=== PATIENT | female | born 1955 | race Caucasian/White ===

== ENCOUNTER → 2025-06-07 08:50 | Outpatient (CLI) | payer MEDICARE, SELFPAY ==
--- OUTSIDE RECORDS SUMMARY | 2025-01-18 05:15 | XMS_ITS ---
Author Organization [facility] [place] Address [address] [facility] [address] [facility] [address] [place] [id number] Care Team Providers Care Shank Skinner Name Role Phone Willam Hinkle Unavailable [phone] Magdalena Kim Unavailable [phone] Allergies Allergen (clinical drug ingredient) Drug/Non Drug Allergy documented on EMR Reaction Allergy Type Onset Date Status erythromycin Erythromycin Unknown Drug Allergy A ctive Bee Sting Unknown Allergy Active Penicillin Unknown Drug Allergy Active Results Component Value Reference Range Notes P-Lyme Disease (B. burgodorf dina), IgG/IgM, OVIDIO, Serum Reviewed date:01/22/2025 01:53:28 PM Interpretation: Normal Performing Lab: Notes/Report: Test performed by [facility] [address] [place], [place] [address] [place] [address] [place] [id number] Zoran Serrato MD, Sand [place] CLIA: [id number] B burgdorferi (Lyme Disease) IgG Negative Negative B burgdorferi (Lyme Disease) IgM Negative Negative P-Cytomegalovirus (CMV) Anti bodies, IgG/IgM Reviewed date:01/22/2025 01:53:28 PM Interpretation: Normal Performing Lab: Notes/Report: Test performed by [facility] [address] [place], [place] [address] [place] [address] Zoran Serrato MD, [place] CLIA: [id number] Cytomegalovirus (CMV) Antibody, IgG Non-Reactive Non-Reactive This test is performed by the [employer] Cytomegalovirus IgG assay. Results from assays of other manufacturers cannot be used interchangeably. Non-reactive CMV IgG-specific antibodies not detected. Borderline Recommend collection of a second sample, within 2 weeks, for repeat testing. Reactive CMV IgG-specific antibodies detected. Cytomegalovirus (CMV) Antibodies, IgM Non-Reactive Non-Reactive This test is performed by the [employer] Cytomegalovirus IgM assay. Results from assays of other manufacturers cannot be used interchangeably. Non-Reactive CMV IgM-specific antibodies not detected. Borderline Recommend collection of a second sample, within 2 weeks, for repeat testing. Reactive CMV IgM-specific antibodies detected. P-Candida Vance Virus (EBV) V CA Antibodies IgG IgM Reviewed date:01/22/2025 01:53:28 PM Interpretation:EBV IgG >8.0 Performing Lab: Notes/Report: Test performed by [facility] [address] [place] [address] , [place] [address] Zoran Serrato MD, [place] CLIA: [id number] Candida Vance Virus (EBV) VCA Antibodies IgG >8.0 <0.9 AI Candida Vance Virus (EBV) VCA Antibodies IgM <0.2 <0.9 AI P-T4 Free (thyroxine) Reviewed date:01/22/2025 01:53:28 PM Interpretation: Normal Performing Lab: Notes/Report: Test performed by [facility] [address] [place] [address] , [address], [place] [address] Zoran Serrato MD, [place] S[place] CLIA: [id number] Thyroxine Free (free T4) 1.14 0.86-1.76 ng/dL P-Lipid Panel Reviewed date:01/22/2025 01:53:28 PM Interpretation: Normal Performing Lab: Notes/Report: Test performed by [facility] [address] [place] [address] , [place] [address] Zoran Serrato MD, [place] CLIA: [id number] Cholesterol 148 <200 mg/dL Triglycerides 81 <150 mg/dL HDL Cholesterol 47 >39 mg/dL Cholesterol / HDL Ratio 3.15 0.00-4.44 Ratio Non-HDL Cholesterol 101 <130 mg/dL LDL Cholesterol (Calculation) 85 <130 mg/dL LDL Cholesterol Levels* Less than 100 mg/dL Optimal 100 to 129 mg/dL Near Optimal/ Above Optimal 130 to 159 mg/dL Borderline High 160 to 189 mg/dL High 190 mg/dL and above Very High * Categories as recommended by the 2004 ATPIII guidelines LDL/HDL Ratio 1.8 <3.3 Ratio LDL Cholesterol Patient History Test Date: 01/18/2025 LDL Results: 85 Units: mg/dL % Change: - P-T3 Uptake Reviewed date:01/22/2025 01:53:28 PM Interpretation: Normal Performing Lab: Notes/Report: Test performed by [facility] [address] [place], [place] [address] [place] [address] Zoran Serrato MD, [place] CLIA: [id number] T3 Uptake 1.01 0.80-1.30 TBI Free T4 (FT4), which more accurately reflects how the thyroid gland is functioning, especially in hypothyroidism, (https://www.thyroid.org/th riltl-djbtysbw-kpecq/), is the preferred alternative, compared to T3 uptake and free thyroxine index tests. P-Thyroid Antibody Panel (TA BS) Reviewed date:01/22/2025 01:53:29 PM Interpretation:TA 15.5, TPA 10 Performing Lab: Notes/Report: Test performed by [facility] [address] [place], [place] [address] [place] [address] Zoran Serrato MD, Sand S[place] CLIA: [id number] Thyroid Peroxidase Antibody 10 <9-34 IU/mL An elevated Thyroid Peroxidase Antibody should not be used alone to make the diagnosis of autoimmune thyroid disease. A result of <34 IU/mL does not definitively rule out the possibility of autoimmune thyroid disease. Thyroglobulin Antibody 15.5 <10-115.0 IU/mL The test is performed by the [employer] ECLIA methodology. Values obtained with different assay methods or kits cannot be directly compared. P-Vitamin D 25-Hydroxy Reviewed date:01/22/2025 01:53:29 PM Interpretation: Normal Performing Lab: Notes/Report: Test performed by [facility] [address] [place] [address] , [address], [place] [address] Zoran Serrato MD, [place] CLIA: [id number] Vitamin D 25-Hydroxy 76.5 30.0-100.0 ng/mL Interpretation of Vitamin D 25 OH: < 20 ng/mL - Deficiency 20 - 29 ng/mL - Insufficiency 30 - 100 ng/mL - Sufficiency > 100 ng/mL - Super-therapeutic- toxicity may occur above this level. Clinical correlation required. REASON FOR VISIT lab work; not feeling any better Medications Medication SIG (Take, Route, Frequency, Duration) Notes Start Date End Date Status Meloxicam 7.5 MG 1 tablet Orally Once a day; Duration: 30 day(s) 01/18/2025 Active cycloSPORINE 0.05 % 1 drop into affected eye Ophthalmic Twice a day Active Vitamin D3 1.25 MG (16856 UT) 1 capsule Orally Once weekly 12/08/2024 Active Problems Problem Type SNOMED Code ICD Code Onset Dates Problem Status W/U Status Risk Notes Problem Chronic fatigue syndrome (38212556) Chronic fatigue (R53.82) Active confirmed Problem Polyarthritis (223267310) Polyarthritis (M13.0) Active confirmed Problem Vitamin D deficiency (73009612) Vitamin D deficiency (E55.9) Active confirmed Vital Signs Blood pressure systolic 122 mm Hg 01/19/20 25 Blood pressure diastolic 70 mm Hg 025 Heart Rate 93 /min 01/18/2025 Height 62 in 01/18/2025 Weight 154 lbs 01/18/2025 BMI 28.16 kg/m2 01/18/2025 Encounters Encounter Location Date Provider Diagnosis [facility] [address] [place], [place] [id number] 01/18/2025 Magdalena Kim Chronic fatigue R53. 82 ; Myalgia M79.10 ; Polyarthritis M13.0 ; Hair loss L65.9 ; Screening, lipid Z13.220 and Vitamin D deficiency E55.9 Assessments Encounter Date Diagnosis (ICD Code) Assessment Notes Treatment Notes Treatment Clinical Notes Section Notes 01/18/2025 Chronic fatigue (ICD-10 - R53.82) 01/18/2025 Myalgia (ICD-10 - M79.10) 01/18/2025 Polyarthritis (ICD-10 - M13.0) 01/18/2025 Hair loss (ICD-10 - L65.9) 01/18/2025 Screening, lipid (ICD-10 - Z13.220) 01/18/2025 Vitamin D deficiency (ICD-10 - E55.9) Plan Of Treatment Medication Medication Name Sig Start Date Stop Date Notes Meloxicam 7.5 MG 1 tablet Orally Once a day; Duration: 30 day(s) 01/18/2025 Next Appt Details Follow Up: via phone to repo rt test results, Reason: Progress Notes * BI YOUNGADOB:1955 (70 yo F)Acc No.[id number]:01/18/2025 Progress Notes Patient: AUGUSTIN GODOY Provider: PETER Jaramillo :1955 A ge:69 Y S ex:Female Date:01/18/2025 Address:[address] [place] [address] Subjective: * Chief Complaints: * 1 . 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 * HPI: E ndocrinology: 69 year old female presents with c/o Fatigue P t complains of ongoing fatigue. Pt states fatigue has worsened and she has a hard time staying awake. Pt states that she is cold all the time as well. Pt states she would like to have blood drawn today to check thyroid and lyme disease a nd anything else that may cause fatigue that has not been checked. She did have covid in October and states she never seemed to bounce back after that.. R heumatology: c/o joint pain m ultiple joints. * ROS: D ERMATOLOGY: no R ludivina. n o H isaac. G ASTROENTEROLOGY: no N ausea. n o V omiting. U ROLOGY: no D ifficulty urinating. n o B lood in urine. * Medical History: M edical History Verified. * Surgical History: T ubal Ligation 1993. * Hospitalization/Major Diagno stic Procedure: D enies Past Hospitalization. * Family History: M other: thyroid disease. 1 brother(s) . . * Social History: C URRENT TOBACCO USE: No . C affeine: no. Alcohol: no. * Medications: T aking cycloSPORINE 0.05 % Emulsion 1 drop into affected eye Ophthalmic Twice a day , Taking Vitamin D3 1.25 MG (72682 UT) Capsule 1 capsule Orally Once weekly , Medication List reviewed and reconciled with the patient * Allergies: P enicillin, Erythromycin, Bee Sting. Objective: * Vitals: W t:154, Temp:98.3, BP:122/70, HR:93, Nurse:varinder, Ht: 62, BMI:28.16. * Examination: G eneral Examination: General Appearance: N AD. H EENT: u nremarkable.?Oral cavity: n o lesions, mucosa moist and WNL, no erythema. N emmanuel: s upple, no lymphadenopathy. C hest: n ormal shape and expansion. H eart: R SR. L ungs: c lear to auscultation. A bdomen: bowel sounds present, soft and nontender. N eurologic Exam: I ntact, gait normal. S kin: n ormal, no rash, hair is thinning. P eripheral pulses: n ormal (2+) bilaterally. E xtremities: n o leg edema. Assessment: * Assessment: 1. C hronic fatigue - R53.82 (Primary) 2 . M yalgia - M79.10 ?3. P olyarthritis - M13.0 4 . H air loss - L65.9 5 . S creening, lipid - Z13.220 6 . V itamin D deficiency - E55.9 Plan: * Treatment: Value Reference Range C ytomegalovirus (CMV) Antibody, IgG Non-Reactive Non-R eactive - * C ytomegalovirus (CMV) Antibodies, IgM Non-Reactive Non -Reactive - * Randi Hall 01/22/2025 01: 53:15 PM > see phone encounter ?LAB: P-Candida Vance Virus (EBV) VCA Antibodies IgG IgM (Collection Date & Time - 01/18/2025 09:03 AM)?EBV IgG >8.0* Value Reference Range E pstein Vance Virus (EBV) VCA Antibodies IgG >8.0 H <0.9 - AI * E pstein Vance Virus (EBV) VCA Antibodies IgM <0.2 <0.9 - AI * Randi Hall 01/22/2025 01: 53:15 PM > see phone encounter 2.?Myalgia?LAB: P-Lyme Disease (B. burgodorferi), IgG/IgM, OVIDIO, Serum (Collection Date & Time - 01/18/2025 09:03 AM)?Normal* Value Reference Range B burgdorferi (Lyme Disease) IgG Negative Negative - * B burgdorferi (Lyme Disease) IgM Negative Negative - * Sejal Kate 9:37:06 AM > just leave a message tyhe pt is at work and can not answer phone she will call back and talk to Randi Blandon 01/22/2025 01:53:15 PM > see phone encounter 3.?Polyarthritis? Start Meloxicam Tablet, 7.5 MG, 1 tablet, Orally, Once a day, 30 day(s), 30 Tablet, Refills 0.??4.?Hair loss?LAB: P-T4 Free (thyroxine) (Collection Date & Time - 01/18/2025 09:03 AM)? Normal* Value Reference Range T hyroxine Free (free T4) 1.14 0.86-1.76 - ng/d L Randi Floyd 01/22/2025 01: 53:15 PM > see phone encounter ?LAB: P-T3 Uptake (Collection Date & Time - 01/18/2025 09:03 AM)?Normal* Value Reference Range T 3 Uptake 1.01 0.80-1.30 - TBI * Randi Hall 01/22/2025 01: 53:15 PM > see phone encounter ?LAB: P-Thyroid Antibody Panel (TABS) (Collection Date & Time - 01/18/2025 09:03 AM)?TA 15.5, TPA 10* Value Reference Range T hyroid Peroxidase Antibody 10 <9-34 - IU/mL * T hyroglobulin Antibody 15.5 <10-115.0 - IU/mL * Randi Hall 01/22/2025 01: 53:15 PM > see phone encounter 5.?Screening, lipid?LAB: P-Lipid Panel (Collection Date & Time - 01/18/2025 09:03 AM)?Normal* Value Reference Range C holesterol / HDL Ratio 3.15 0.00-4.44 - Ratio * C holesterol 148 <200 - mg/dL * H DL Cholesterol 47 >39 - mg/dL * L DL Cholesterol (Calculation) 85 <130 - mg/d L * L DL/HDL Ratio 1.8 <3.3 - Ratio * N on-HDL Cholesterol 101 <130 - mg/dL * T riglycerides 81 <150 - mg/dL * IsabelRandi 01/22/2025 01: 53:15 PM > see phone encounter 6.?Vitamin D deficiency?LAB: P-Vitamin D 25-Hydroxy (Collection Date & Time - 01/18/2025 09:03 AM)? Normal* Value Reference Range V itamin D 25-Hydroxy 76.5 30.0-100.0 - ng/mL * Randi Hall 01/22/2025 01: 53:15 PM > see phone encounter * Procedure Codes: G 2211 Complex e/m visit add on, 3074F SYST BP LT 130 MM HG, 3078F DIAST BP < 80 MM HG * Follow Up: v ia phone to report test results * Images: Billing Information: * Visit Code: 64173 Office Visit, Est Pt., Level 4. * Procedure Codes: G2211 Complex e/m visit add on. 3074F SYST BP LT 130 MM HG. 3078F DIAST BP < 80 MM HG. * Electronic signature of PETER Brown on 06/07/2025 at 08:56 AM EDT Sign off status: Pending * Provider: PETER Jaramillo Date: 0 01/18/2025 Generated for Printi ng/Faxing/eTransmitting on: 0 06/07/2025 08:56 AM EDT History and Physical Notes * HPI (History of Present Illness) Category Sub-Category Detail Notes Category Not es Endocrinology Fatigue Pt complains of ongoing fatigue. Pt states fatigue has worsened and she has a hard time staying awake. Pt states that she is cold all the time as well. Pt states she would like to have blood drawn today to check thyroid and lyme disease and anything else that may cause fatigue that has not been checked. She did have covid in October and states she never seemed to bounce back after that. Rheumatology joint pain multiple joints Examination Category Sub-Category Detail Notes Category Not es General Examination HEENT: unremarkable Heart: RSR Lungs: clear to auscultatio n Abdomen: bowel sounds present , soft and nontender Extremities: no leg edema General Appearance: NAD Skin: normal, no rash, morenita r is thinning Neurologic Exam: Intact, gait normal Neck: supple, no lymphaden opathy Oral cavity: no lesions, mucosa m oist and WNL, no erythema Peripheral pulses: normal (2+) bilatera lly Chest: normal shape and exp ansion
--- OUTSIDE RECORDS SUMMARY | 2025-01-24 10:15 | XMS_ITS ---
[facility] Organization [facility] Address [address] [facility] [address] [facility] [address] [place] [id number] Care Team Providers Care Vice President Name Role Phone Willam Hinkle Unavailable [phone] Magdalena Kim Unavailable [phone] Allergies Allergen (clinical drug ingredient) Drug/Non Drug Allergy documented on EMR Reaction Allergy Type Onset Date Status erythromycin Erythromycin Unknown Drug Allergy A ctive Bee Sting Unknown Allergy Active Penicillin Unknown Drug Allergy Active Results Component Value Reference Range Notes CBC Fingerstick (in house) Reviewed date:01/24/2025 11:02:30 PM Interpretation: Performing Lab: Notes/Report: wbc 11.9 3.5 - 10 lym 17.0% 15 - 50 mid 4.7% 2 - 15 gran 78.3% 35 - 80 rbc 4.86 3.5 - 5.5 hgb 14.2 11.5 - 16.5 hct 42.6 35 - 55 mcv 87.6 75 - 100 mch 29.3 25 - 35 mchc 33.4 31 - 38 plat 429 100 - 400 TEN-Upper Respiratory PCR Reviewed date:01/26/2025 01:46:15 PM Interpretation:Negative Performing Lab: Notes/Report: Negative REASON FOR VISIT Not Feeling Well Medications Medication SIG (Take, Route, Frequency, Duration) Notes Start Date End Date Status cycloSPORINE 0.05 % 1 drop into affected eye Ophthalmic Twice a day Active Vitamin D3 1.25 MG (98080 UT) 1 capsule Orally Once weekly 12/08/2024 Active Cefdinir 300 MG 1 cap(s) Orally Two times a day; Duration: 10 day(s) 01/24/2025 Active Meloxicam 7.5 MG 1 tablet Orally Once a day Active Problems Problem Type SNOMED Code ICD Code Onset Dates Problem Status W/U Status Risk Notes Problem Right maxillary sinusitis (J32.0) Active confirmed Vital Signs Blood pressure systolic 120 mm Hg 01/25/20 25 Blood pressure diastolic 82 mm Hg 025 Heart Rate 99 /min 01/24/2025 Height 62 in 01/24/2025 Weight 155.4 lbs 01/24/2025 BMI 28.42 kg/m2 01/24/2025 Encounters Encounter Location Date Provider Diagnosis [facility] [address] [facility] [address] [place], [place] [id number] 01/24/2025 Magdalena Kim Chronic fatigue R53. 82 ; Myalgia M79.10 ; Polyarthritis M13.0 ; Hair loss L65.9 ; Screening, lipid Z13.220 ; Vitamin D deficiency E55.9 and Right maxillary sinusitis J32.0 Assessments Encounter Date Diagnosis (ICD Code) Assessment Notes Treatment Notes Treatment Clinical Notes Section Notes 01/24/2025 Chronic fatigue (ICD-10 - R53.82) Discussed all lab results which were normal. She certainly could have fibromyalgia along with osteoarthritis causing the joint and muscle pain. The meloxicam would likely help with these symptoms. We also discussed the possibility of long covid as symptoms got much worse after she had covid in October. I discussed the case with Dr. Hinkle and he also recommended a sleep study which the patient declined. We can make a referral to [facility] long covid clinic but she would like to do a respiratory panel to r/o any infection before proceeding with referral. 01/24/2025 Myalgia (ICD-10 - M79.10) 01/24/2025 Polyarthritis (ICD-10 - M13.0) 01/24/2025 Hair loss (ICD-10 - L65.9) 01/24/2025 Screening, lipid (ICD-10 - Z13.220) 01/24/2025 Vitamin D deficiency (ICD-10 - E55.9) 01/24/2025 Right maxillary sinusitis (ICD-10 - J32.0) Plan Of Treatment Medication Medication Name Sig Start Date Stop Date Notes Cefdinir 300 MG 1 cap(s) Orally Two times a day; Duration: 10 day(s) 01/24/2025 Meloxicam 7.5 MG 1 tablet Orally Once a day Treatment Notes Assessment Notes Chronic fatigue Discussed all lab re sults which were normal. She certainly could have fibromyalgia along with osteoarthritis causing the joint and muscle pain. The meloxicam would likely help with these symptoms. We also discussed the possibility of long covid as symptoms got much worse after she had covid in October. I discussed the case with Dr. Hinkle and he also recommended a sleep study which the patient declined. We can make a referral to [facility] long covid clinic but she would like to do a respiratory panel to r/o any infection before proceeding with referral. Next Appt Details Follow Up: via phone to repo rt test results, Reason: Progress Notes * BI YOUNGADOB:1955 (70 yo F)Acc No.[id number]:01/24/2025 Progress Notes Patient: AUGUSTIN GODOY Provider: PETER Jaramillo :1955 A ge:69 Y S ex:Female Date:01/24/2025 Address:[address] [place] [address] Subjective: * Chief Complaints: * 1 . Not Feeling Well. * HPI: C onstitutional: The patient is still feeling very fatigued and having body aches. Pt states she is also having sinus drainage and facial pain. She had a tooth pulled last week and now thinks she has a sinus infection on that side. She was not started on any abx. She is still very fatigued and has body aches all the time. She has not started the meloxicam yet. 69 year old female presents with c/o fatigue. * ROS: D ERMATOLOGY: no R ludivina. n o H isaac. G ASTROENTEROLOGY: no N ausea. n o V omiting. n o D iarrhea.? U ROLOGY: no D ifficulty urinating. n o B lood in urine. * Medical History: M edical History Verified. * Surgical History: T ubal Ligation 1993. * Family History: M other: thyroid disease. 1 brother(s) . . * Social History: C URRENT TOBACCO USE: No . C affeine: no. Alcohol: no. * Medications: T aking cycloSPORINE 0.05 % Emulsion 1 drop into affected eye Ophthalmic Twice a day , Taking Vitamin D3 1.25 MG (39884 UT) Capsule 1 capsule Orally Once weekly , Taking Meloxicam 7.5 MG Tablet 1 tablet Orally Once a day , Medication List reviewed and reconciled with the patient * Allergies: P enicillin, Erythromycin, Bee Sting. Objective: * Vitals: W t:155.4, Temp:98.2, BP:120/82, HR:99, Nurse:ISRAEL, Ht: 62, BMI:28.42. * Examination: G eneral Examination: General Appearance: N AD. H EENT: sclera and conjunctiva clear, PERRLA, TM's normal, translucent, right maxillary sinus tender, no gum tenderness.?Oral cavity: n o lesions, mucosa moist and WNL, no erythema. N emmanuel: s upple, no lymphadenopathy. C hest: n ormal shape and expansion. H eart: R SR. L ungs: c lear to auscultation. A bdomen: bowel sounds present, soft and nontender, no organomegaly or masses, no guarding or rigidity. N eurologic Exam: I ntact, gait normal. S kin: n ormal, no rash. P eripheral pulses: n ormal (2+) bilaterally. E xtremities: n o leg edema. Assessment: * Assessment: 1. C hronic fatigue - R53.82 (Primary) 2 . M yalgia - M79.10 ?3. P olyarthritis - M13.0 4 . H air loss - L65.9 5 . S creening, lipid - Z13.220 6 . V itamin D deficiency - E55.9 7 . R ight maxillary sinusitis - J32.0 Plan: * Treatment: 2. P olyarthritis Start Meloxicam Tablet, 7.5 MG, 1 tablet, Orally, Once a day. 3. R ight maxillary sinusitis Start Cefdinir Capsule, 300 MG, 1 cap(s), Orally, Two times a day, 10 day(s), 20 Capsule, Refills 0. L AB: CBC Fingerstick (in house) (Collection Date & Time - 01/24/2025) Value Reference Range w bc 11.9 3.5 - 10 * l ym 17.0% 15 - 50 * m id 4.7% 2 - 15 * g ran 78.3% 35 - 80 * r bc 4.86 3.5 - 5.5 * h gb 14.2 11.5 - 16.5 * h ct 42.6 35 - 55 * m cv 87.6 75 - 100 * m ch 29.3 25 - 35 * m chc 33.4 31 - 38 * p lat 429 100 - 400 * RadhaMaria Del Carmen L 01/24/2025 3:1 5:25 PM > Provider reviewed results while patient in office. ?LAB: TEN-Upper Respiratory PCR (Collection Date & Time - 01/24/2025)? Negative* Magdalena Kim 01/26/2025 1: 46:11 PM > see TE * Procedure Codes: G 2211 Complex e/[place], [address] CAPILLARY BLOOD DRAW, 88384 CBC WITH AUTO DIFF, 3074F SYST BP LT 130 MM HG, 3079F DIAST BP 80-89 MM HG * Follow Up: v ia phone to report test results * Images: Billing Information: * Visit Code: 82970 Office Visit, Est Pt., Level 4. * Procedure Codes: G2211 Complex e/[place]. [address] CAPILLARY BLOOD DRAW. 54457 CBC WITH AUTO DIFF. 3074F SYST BP LT 130 MM HG. 3079F DIAST BP 80-89 MM HG. * Electronic signature of PETER Brown on 06/07/2025 at 08:56 AM EDT Sign off status: Pending * Provider: PETER Jaramillo Date: 0 01/24/2025 Generated for Sterling iverson/Yeison/Yessicaitting on: 0 06/07/2025 08:56 AM EDT History and Physical Notes * HPI (History of Present Illness) Category Sub-Category Detail Notes Category Not es Constitutional fatigue Examination Category Sub-Category Detail Notes Category Not es General Examination HEENT: sclera and c onjunctiva clear, PERRLA, TM's normal, translucent, right maxillary sinus tender, no gum tenderness Heart: RSR Lungs: clear to auscultatio n Abdomen: bowel sounds present , soft and nontender, no organomegaly or masses, no guarding or rigidity Extremities: no leg edema General Appearance: NAD Skin: normal, no rash Neurologic Exam: Intact, gait normal Neck: supple, no lymphaden opathy Oral cavity: no lesions, mucosa m oist and WNL, no erythema Peripheral pulses: normal (2+) bilatera lly Chest: normal shape and exp ansion
--- OUTSIDE RECORDS SUMMARY | 2025-05-02 10:00 | XMS_ITS ---
Author [facility] Address [address] [facility] [address] [facility] [address] [place] [id number] Care Team Providers Care Explosive Ordnance Disposal Technician Name Role Phone Willam Hinkle Unavailable [phone] Magdalena Kim Unavailable [phone] Allergies Allergen (clinical drug ingredient) Drug/Non Drug [...] of rh eumatoid arthritis (Z82.61) [facility] Referring Provider First Name Magdalena Referring Provider Last Name Judy Referring Provider Speciality Physician Server Programmer Referred Provider Specialty Rheumatology General Notes Magdalena [...] a day Active Vitamin D3 1.25 MG (19738 UT) 1 capsule Orally Once weekly 12/08/2024 [...] [facility] [address] [facility] [address] [place], [place] [id number] 05/02/2025 Magdalena Kim Chronic fatigue R53. 82 [...] Notes * BI YOUNGADOB:1955 (70 yo F)Acc No.[id number]:05/02/2025 Progress Notes Patient: AUGUSTIN GODOY Provider: PETER Jaramillo :1955 A ge:70 Y S ex:Female Date:05/02/2025 Address:[address] [place] [address] Subjective: * Chief Complaints: * 1 . [...] day , Taking Vitamin D3 1.25 MG (83475 UT) Capsule 1 capsule Orally Once weekly [...] rheumatoid arthritis - Z82.61 7 . B [place] 28.0-28.9,adult - Z68.28 Plan: * Treatment: 2. [...] * Images: Billing Information: * Visit Code: 04433 Office Visit, Est Pt., Level 4. * [...] PETER Jaramillo Date: 0 05/02/2025 Generated for Tyi zayra/Yeison/Yessicaitting on: 0 06/07/2025 08:56 AM EDT History [...]
--- OUTSIDE RECORDS SUMMARY | 2025-06-07 08:57 | XMS_ITS ---
Author Organization Unknown [facility] Start Date Provider Encounter for Check-up [id number] [facility]
--- OUTSIDE RECORDS SUMMARY | 2025-06-07 08:57 | XMS_ITS | Patient Health Record ---
[facility] Organization [facility] [address] [facility] [address] [facility] [address] [place] [id number] Care Team Providers Care Catalyst Impregnator Name Role Phone Willam Hinkle Unavailable [phone] Magdalena Kim Unavailable [phone] Allergies Allergen (clinical drug ingredient) Drug/Non Drug Allergy documented on EMR Reaction Allergy Type Onset Date Status erythromycin Erythromycin Unknown Drug Allergy A ctive Bee Sting Unknown Allergy Active Penicillin Unknown Drug Allergy Active Results Component Value Reference Range Notes P-Lyme Disease (B. burgodorf dina), IgG/IgM, OVIDIO, Serum Reviewed date:01/22/2025 01:53:28 PM Interpretation: Normal Performing Lab: Notes/Report: Test performed by [facility] [address] [place] [address] [place] [address] Zoran Serrato MD, Recreation Program Coordinator CLIA: [id number] B burgdorferi (Lyme Disease) IgG Negative Negative B burgdorferi (Lyme Disease) IgM Negative Negative P-Cytomegalovirus (CMV) Anti bodies, IgG/IgM Reviewed date:01/22/2025 01:53:28 PM Interpretation: Normal Performing Lab: Notes/Report: Test performed by [employer] [address] [place] [address] , [place] [address] Zoran Serrato MD, Recreation Program Coordinator CLIA: [id number] Cytomegalovirus (CMV) Antibody, IgG Non-Reactive Non-Reactive This [...] >8.0 Performing Lab: Notes/Report: Test performed by [facility] [address] [place] [address] , [place] [address] Zoran Serrato MD, Recreation Program Coordinator CLIA: [id number] Candida Vance Virus (EBV) VCA Antibodies IgG >8.0 <0.9 AI Candida Vance Virus (EBV) VCA Antibodies IgM <0.2 <0.9 AI P-T4 Free (thyroxine) Reviewed date:01/22/2025 01:53:28 PM Interpretation: Normal Performing Lab: Notes/Report: Test performed by [employer] [address] , [place] [address] Zoran Serrato MD, Recreation Program Coordinator CLIA: [id number] Thyroxine Free (free T4) 1.14 0.86-1.76 ng/dL P-Lipid Panel Reviewed date:01/22/2025 01:53:28 PM Interpretation: Normal Performing Lab: Notes/Report: Test performed by [employer] [address] [place] [address] , [place] [address] Zoran Serrato MD, Recreation Program Coordinator CLIA: [id number] Cholesterol 148 <200 mg/dL Triglycerides 81 <150 [...] Normal Performing Lab: Notes/Report: Test performed by [facility] [address] [place], [place] [address] [place] [address] Zoran Serrato MD, Recreation Program Coordinator CLIA: [id number] T3 Uptake 1.01 0.80-1.30 TBI Free T4 (FT4), which more accurately reflects how the thyroid gland is functioning, especially in hypothyroidism, (https://www.thyroid.org/th fzqkv-hawkykmc-jvlld/), is the preferred alternative, compared to T3 uptake and free thyroxine index tests. P-Thyroid Antibody Panel (TA BS) Reviewed date:01/22/2025 01:53:29 PM Interpretation:TA 15.5, TPA 10 Performing Lab: Notes/Report: Test performed by [facility] [address] [place], [place] [address] [place] [address] Zoran Serrato MD, Recreation Program Coordinator CLIA: [id number] Thyroid Peroxidase Antibody 10 <9-34 IU/mL An [...] Normal Performing Lab: Notes/Report: Test performed by [employer] [address] [place] [address] , [place] [address] Zoran Serrato MD, Recreation Program Coordinator CLIA: [id number] Vitamin D 25-Hydroxy 76.5 30.0-100.0 ng/mL Interpretation of Vitamin D 25 OH: < 20 ng/mL - Deficiency 20 - 29 ng/mL - Insufficiency 30 - 100 ng/mL - Sufficiency > 100 ng/mL - Super-therapeutic- toxicity may occur above this level. Clinical correlation required. TEN-Upper Respiratory PCR Reviewed date:01/26/2025 01:46:15 PM Interpretation:Negative Performing Lab: Notes/Report: Negative CBC Fingerstick (in house) Reviewed date:01/24/2025 11:02:30 [...] - 38 plat 429 100 - 400 P-Vitamin D 25-Hydroxy Reviewed date:12/08/2024 04:38:45 PM Interpretation:19.4 Performing Lab: Notes/Report: Test performed by [employer] [address] [place] [address] , [address], [place] [address] Zoran Serrato MD, Recreation Program Coordinator CLIA: [id number] Vitamin D 25-Hydroxy 19.4 30.0-100.0 ng/mL Interpretation of Vitamin D 25 OH: < 20 ng/mL - Deficiency 20 - 29 ng/mL - Insufficiency 30 - 100 ng/mL - Sufficiency > 100 ng/mL - Super-therapeutic- toxicity may occur above this level. Clinical correlation required. P-TSH reflex to FT4 Reviewed date:12/08/2024 04:38:45 PM Interpretation:Normal Performing Lab: Notes/Report: Test performed by [employer] [address] [place] [address] , [address], [place] [address] Zoran Serrato MD, Recreation Program Coordinator CLIA: [id number] TSH reflex to FT4 2.34 0.43-5.25 mU/L P-Phosphorus Reviewed date:12/08/2024 04:38:45 PM Interpretation:Normal Performing Lab: Notes/Report: Test performed by [employer] , [address], [place] [address] Zoran Serrato MD, Recreation Program Coordinator CLIA: [id number] Phosphorus 3.2 2.5-4.5 mg/dL P-Magnesium Reviewed date:12/08/2024 04:38:45 PM Interpretation:Normal Performing Lab: Notes/Report: Test performed by [employer] [address] , [address], [place] [address] Zoran Serrato MD, Recreation Program Coordinator CLIA: [id number] Magnesium 2.1 1.6-2.4 mg/dL P-Arthritis Panel, [facility] Reviewed date:12/08/2024 04:38:45 PM Interpretation:crp 0.53 Performing Lab: Notes/Report: Test performed by [employer] [address] , [address], [place] [address] Zoran Serrato MD, Recreation Program Coordinator CLIA: [id number] Erythrocyte Sedimentation Rate (ESR), Automated 22 <31 mm/hr Rheumatoid Factor <10 <14.1 IU/mL C-Reactive Protein (CRP) 0.53 <0.50 mg/dL Antinuclear Antibodies (VONDA) Screen, Reflex VONDA 9 Panel Negative Negative This test is perform ed by Multiplex Bead Immunoassay methodology. Antinuclear Antibodies (VONDA) Result Note SEE COMMENT For positive Autoantibodies, please refer to the interpretive chart here: http://www.[employer]/wp -content/uploads//AN J-Rjowtfefebij-Kdgkv.pdf CCP Antibodies <0.5 <0.5-3.0 U/mL P-CPK Reviewed date:12/08/2024 04:38:45 PM Interpretation:Normal Performing Lab: Notes/Report: Test performed by [employer] [address] [place] [address] , [address], [place] [address] Zoran Serrato MD, Recreation Program Coordinator CLIA: [id number] Creatine Kinase 45 20-180 U/L P-Comprehensive Metabolic Pa nelson ([facility]) Reviewed date:12/08/2024 04:38:45 PM Interpretation:Normal Performing Lab: Notes/Report: Test performed by [employer] [address] [place] [address] , [address], [place] [address] Zoran Serrato MD, Recreation Program Coordinator CLIA: [id number] Sodium 142 135-145 mmol/L Potassium 4.2 3.5-5.3 mmol/L Chloride 106 97-108 mmol/L CO2 24 22-32 mmol/L Glucose 88 65-99 mg/dL BUN 12 8-23 mg/dL Creatinine 0.69 0.50-1.00 mg/dL Calcium 9.4 8.6-10.4 mg/dL eGFR by Creatinine 95 >59 mL/min/1.73m2 Protein 7.0 6.0-8.3 g/dL Albumin 4.4 3.5-5.3 g/dL Alkaline Phosphatase 93 35-121 IU/L ALT (SGPT) 17 <5-47 IU/L AST (SGOT) 21 <5-40 IU/L Bilirubin, Total 0.7 <0.2-1.2 mg/dL A/G Ratio 1.7 1.1-2.5 P-Vitamin B12 Reviewed date:12/08/2024 04:38:45 PM Interpretation:>1999 Performing Lab: Notes/Report: Test performed by [employer] [address] [place] [address] , [address], [place] [address] Zoran Serrato MD, Recreation Program Coordinator CLIA: [id number] Vitamin B12 >2000 232-1245 pg/mL CBC Venipuncture (in house) Reviewed date:12/08/2024 04:38:45 PM Interpretation:Normal Performing Lab: Notes/Report: Normal wbc 7.0 3.5 - 10 lymph 25.8% 15 - 50 mid 5.6% 2 - 15 gran 68.6% 35 - 80 rbc 4.99 3.5 - 5.5 hgb 14.9 11.5 - 16.5 hct 43.9 35 - 55 mcv 88.0 75 - 100 mch 29.9 25 - 35 mchc 33.9 31 - 38 platlet 309 100 - 400 ELOISA Reviewed date:11/27/2024 02:00:07 PM Interpretation: Performing Lab: Notes/Report: Reason For Referral Diagnosis 1 Chronic fatigue (R53 .82) Diagnosis 2 Myalgia (M79.10) Diagnosis 3 Polyarthritis (M13.0 ) Diagnosis 4 Joint stiffness (M25 .60) Diagnosis 5 Family history of rh eumatoid arthritis (Z82.61) [facility] Referring Provider First Name Magdalena Referring Provider Last Name Judy Referring Provider Speciality Physician Transfer Station Operator Referred Provider Specialty Rheumatology General Notes Magdalena Kim 12/2024 02:25:17 PM > Please make appt with Dr. Norwood. Please send all previous labs and notes., Sheridan Farmer 05/02/2025 02:44:19 PM > sent all notes/referral Referral Priority Routine Medications Medication SIG (Take, Route, Frequency, Duration) Notes Start Date End Date Status Meloxicam 15 MG 1 tablet Orally Once a day; Duration: 30 day(s) 01/31/2025 Active DULoxetine HCl 30 MG 1 capsule Orally On ce a day; Duration: 30 days 05/02/2025 Active cycloSPORINE 0.05 % 1 drop into affected eye Ophthalmic Twice a day Active Vitamin D3 1.25 MG (58977 UT) 1 capsule Orally Once weekly 12/08/2024 Active Problems Problem Type SNOMED Code ICD Code Onset Dates Problem Status W/U Status Risk Notes Problem Vitamin D deficiency (35765749) Vitamin D deficiency (E55.9) Active confirmed Problem Chronic fatigue syndrome (50799377) Chronic fatigue (R53.82) Active confirmed Problem Polyarthritis (240810138) Polyarthritis (M13.0) Active confirmed Problem Obstructive sleep apnea syndrome (89179194) JAI (obstructive sleep apnea) (G47.33) Active confirmed Problem Chronic maxillary sinusitis (27841501) Right maxillary sinusitis (J32.0) Active confirmed Problem Daytime sleep (314206970) Daytime hypersomnolence (G47.19) Active confirmed Vital Signs Heart Rate 78 /min 05/02/2025 Blood pressure diastolic 60 mm Hg 05/02/2025 Height 62 in 05/02/2025 Blood pressure systolic 122 mm Hg 05/02/2025 Weight 154.4 lbs 05/02/2025 BMI 28.24 kg/m2 05/02/2025 Encounters Encounter Location Date Provider Diagnosis [facility] [address] [place], [place] [id number] 12/07/2024 Willam De Kalb Weight gain R63.5 ; Fatigue, unspecified type R53.83 ; Hair loss L65.9 ; Myalgia M79.10 ; Polyarthralgia M25.50 and Memory loss R41.3 [facility] [address] [place], [place] [id number] 01/18/2025 Magdalena Crowdy Chronic fatigue R53. 82 ; Myalgia M79.10 ; Polyarthritis M13.0 ; Hair loss L65.9 ; Screening, lipid Z13.220 and Vitamin D deficiency E55.9 [facility] [address] [place], [place] [id number] 01/24/2025 Magdalena Crowdy Chronic fatigue R53. 82 ; Myalgia M79.10 ; Polyarthritis M13.0 ; Hair loss L65.9 ; Screening, lipid Z13.220 ; Vitamin D deficiency E55.9 and Right maxillary sinusitis J32.0 [facility] [address] [place] [id number] 05/02/2025 Magdalena Crowdy Chronic fatigue R53. 82 ; Myalgia M79.10 ; Polyarthritis M13.0 ; Joint stiffness M25.60 ; Daytime hypersomnolence G47.19 ; Family history of rheumatoid arthritis Z82.61 and BMI 28.0-28.9,adult Z68.28 [facility] [address] [place], [place] [id number] 05/14/2025 Willam De Kalb [facility] [address] [place] [id number] 12/08/2024 Willam De Kalb [facility] [address] [place] [id number] 01/15/2025 Willam De Kalb [facility] [address] [place] [id number] 01/22/2025 Magdalena Kim [facility] [address] [place], [place] [id number] 01/26/2025 Magdalena Kim [facility] [address] [place] [id number] 01/30/2025 Magdalena Kim Polyarthritis M13.0 and Right maxillary sinusitis J32.0 [facility] [address] [place], [place] [id number] 05/24/2025 Willam Hinkle Myalgia M79.10 Assessments Encounter Date Diagnosis (ICD Code) Assessment Notes Treatment Notes Treatment Clinical Notes Section Notes 12/07/2024 Weight gain (ICD-10 - R63.5) 12/07/2024 Fatigue, unspecified type (ICD-10 - R53.83) 01/18/2025 Chronic fatigue (ICD-10 - R53.82) 01/18/2025 Myalgia (ICD-10 - M79.10) 01/24/2025 Chronic fatigue (ICD-10 - R53.82) Discussed [...] declined. We can make a referral to [facility] long covid clinic but she would like to do a respiratory panel to r/o any infection before proceeding with referral. 01/24/2025 Myalgia (ICD-10 - M79.10) 01/30/2025 Polyarthritis (ICD-10 - M13.0) 05/02/2025 Chronic fatigue (ICD-10 - R53.82) All [...] on duloextine to see if this helps. 05/24/2025 Myalgia (ICD-10 - M79.10) 05/02/2025 Polyarthritis (ICD-10 - M13.0) 01/30/2025 Right maxillary sinusitis (ICD-10 - J32.0) 01/24/2025 Polyarthritis (ICD-10 - M13.0) 01/18/2025 Polyarthritis (ICD-10 - M13.0) 12/07/2024 Hair loss (ICD-10 - L65.9) 12/07/2024 Myalgia (ICD-10 - M79.10) 01/18/2025 Hair loss (ICD-10 - L65.9) 01/24/2025 Hair loss (ICD-10 - L65.9) 05/02/2025 Joint stiffness (ICD-10 - M25.60) 05/02/2025 Daytime hypersomnolence (ICD-10 - G47.19) 01/24/2025 Screening, lipid (ICD-10 - Z13.220) 12/07/2024 Polyarthralgia (ICD-10 - M25.50) 01/18/2025 Screening, lipid (ICD-10 - Z13.220) 12/07/2024 Memory loss (ICD-10 - R41.3) 01/18/2025 Vitamin D deficiency (ICD-10 - E55.9) 01/24/2025 Vitamin D deficiency (ICD-10 - E55.9) 05/02/2025 Family history of rheumatoid arthritis (ICD-10 - Z82.61) 05/02/2025 BMI 28.0-28.9,adult (ICD-10 - Z68.28) 01/24/2025 Right maxillary sinusitis (ICD-10 - J32.0) Plan Of Treatment Pending Test Test Name Order Date sleep study 05/02/2025 Insurance Providers Payer Name Payer Address Payer Phone Subscriber Number Group Number Insured Name Patient Relationship to Insured Coverage Start Date Coverage End Date [employer] (MEDICAR E) [address] [address] [place] [address] [phone] [id number] AUGUSTIN YOUNG Self - patient is the insured Medical (General) History Surgical History Surgery Date(Month/Year) Tubal Ligation 1993
== END ==
LOC: SL 08:54
PROVIDERS: PCP Physician Assistant; Visit Provider Physician Assistant
DX: G47.33 Obstructive sleep apnea (adult) (pediatric) (principal); G47.19 Other hypersomnia; R06.83 Snoring
CPT/HCPCS: G0399

== ENCOUNTER 2025-06-14 08:34 | Outpatient (CLI) | payer MEDICARE, SELFPAY ==
--- OUTSIDE RECORDS SUMMARY | 2025-01-18 05:15 | XMS_ITS ---
[facility] Address [address] [facility] [address] [facility] [address] [place] [phone] Care Team Providers Care Warranty Manager Name Role Phone Willam Hinkle Unavailable [phone] Magdalena Kim Unavailable [phone] Allergies Allergen (clinical drug ingredient) Drug/Non Drug Allergy documented on EMR Reaction Allergy Type Onset Date Status erythromycin Erythromycin Unknown Drug Allergy A ctive Bee Sting Unknown Allergy Active Penicillin Unknown Drug Allergy Active Results Component Value Reference Range Notes P-Lyme Disease (B. burgodorf dina), IgG/IgM, OVIDIO, Serum Reviewed date:01/22/2025 01:53:28 PM Interpretation: Normal Performing Lab: Notes/Report: Test performed by [facility] [address] [place], [place] [address] [place] [address] [place] [id number] Zoran Serrato MD, Director Corporate CLIA: [id number] B burgdorferi (Lyme Disease) IgG Negative Negative B burgdorferi (Lyme Disease) IgM Negative Negative P-Cytomegalovirus (CMV) Anti bodies, IgG/IgM Reviewed date:01/22/2025 01:53:28 PM Interpretation: Normal Performing Lab: Notes/Report: Test performed by [facility] [address] [place], [place] [address] [place] [address] Zoran Serrato MD, Director Corporate CLIA: [id number] Cytomegalovirus (CMV) Antibody, IgG Non-Reactive Non-Reactive This [...] >8.0 Performing Lab: Notes/Report: Test performed by [facility] [address] [place] [address] , [place] [address] Zoran Serrato MD, Director Corporate CLIA: [id number] Candida Vance Virus (EBV) VCA Antibodies IgG >8.0 <0.9 AI Candida Vance Virus (EBV) VCA Antibodies IgM <0.2 <0.9 AI P-T4 Free (thyroxine) Reviewed date:01/22/2025 01:53:28 PM Interpretation: Normal Performing Lab: Notes/Report: Test performed by [facility] [address] [place] [address] , [address], [place] [address] Zoran Serrato MD, Director Corporate CLIA: [id number] Thyroxine Free (free T4) 1.14 0.86-1.76 ng/dL P-Lipid Panel Reviewed date:01/22/2025 01:53:28 PM Interpretation: Normal Performing Lab: Notes/Report: Test performed by [facility] [address] [place] [address] , [place] [address] Zoran Serrato MD, Director Corporate CLIA: [id number] Cholesterol 148 <200 mg/dL Triglycerides 81 <150 [...] Normal Performing Lab: Notes/Report: Test performed by [facility] [address] [place], [place] [address] [place] [address] Zoran Serrato MD, Director Corporate CLIA: [id number] T3 Uptake 1.01 0.80-1.30 TBI Free T4 (FT4), which more accurately reflects how the thyroid gland is functioning, especially in hypothyroidism, (https://www.thyroid.org/th sbzfy-ezxasjcl-pjrla/), is the preferred alternative, compared to T3 uptake and free thyroxine index tests. P-Thyroid Antibody Panel (TA BS) Reviewed date:01/22/2025 01:53:29 PM Interpretation:TA 15.5, TPA 10 Performing Lab: Notes/Report: Test performed by [facility] [address] [place], [place] [address] [place] [address] Zoran Serrato MD, Director Corporate CLIA: [id number] Thyroid Peroxidase Antibody 10 <9-34 IU/mL An [...] Normal Performing Lab: Notes/Report: Test performed by [facility] [address] [place] [address] , [address], [place] [address] Zoran Serrato MD, Director Corporate CLIA: [id number] Vitamin D 25-Hydroxy 76.5 30.0-100.0 ng/mL Interpretation [...] a day Active Vitamin D3 1.25 MG (30798 UT) 1 capsule Orally Once weekly 12/08/2024 Active Problems Problem Type SNOMED Code ICD Code Onset Dates Problem Status W/U Status Risk Notes Problem Chronic fatigue syndrome (86989192) Chronic fatigue (R53.82) Active confirmed Problem Polyarthritis (512452919) Polyarthritis (M13.0) Active confirmed Problem Vitamin D deficiency (69542680) Vitamin D deficiency (E55.9) Active confirmed Vital Signs Blood pressure systolic 122 mm Hg 01/19/20 25 Blood pressure diastolic 70 mm Hg 025 Heart Rate 93 /min 01/18/2025 Height 62 in 01/18/2025 Weight 154 lbs 01/18/2025 BMI 28.16 kg/m2 01/18/2025 Encounters Encounter Location Date Provider Diagnosis [facility] [address] [place], [place] [phone] 01/18/2025 Magdalena Kim Chronic fatigue R53. 82 [...] Notes * BI YOUNGADOB:1955 (70 yo F)Acc No.[id number]:01/18/2025 Progress Notes Patient: AUGUSTIN GODOY Provider: PETER Jaramillo :1955 A ge:69 Y S ex:Female Date:01/18/2025 Address:[address] [place] [address] Subjective: * Chief Complaints: * 1 . [...] day , Taking Vitamin D3 1.25 MG (26627 UT) Capsule 1 capsule Orally Once weekly [...] Antibodies IgM <0.2 <0.9 - AI * Rnadi Hall 01/22/2025 01: 53:15 PM > see [...] * Images: Billing Information: * Visit Code: 80200 Office Visit, Est Pt., Level 4. * Procedure Codes: G2211 Complex e/m visit add on. 3074F SYST BP LT 130 MM HG. 3078F DIAST BP < 80 MM HG. * Electronic signature of PETER Brown on 06/14/2025 at 08:41 AM EDT Sign off status: Pending * Provider: PETER Jaramillo Date: 0 01/18/2025 Generated for Printi ng/Faxing/eTransmitting on: 0 06/14/2025 08:41 AM EDT History and Physical Notes * [...]
--- OUTSIDE RECORDS SUMMARY | 2025-01-24 10:15 | XMS_ITS ---
Author Organization [facility] Address [address] [facility] [address] [facility] [address] [place] [id number] Care Team Providers Care Stain [place]per Name Role Phone Willam Hinkle Unavailable [phone] Magdalena Kim Unavailable [phone] Allergies Allergen (clinical drug ingredient) Drug/Non Drug [...] a day Active Vitamin D3 1.25 MG (73373 UT) 1 capsule Orally Once weekly 12/08/2024 [...] Provider Diagnosis [facility] [address] [facility] [address] [place], [place] [id number] 01/24/2025 Magdalena Kim Chronic fatigue R53. 82 [...] declined. We can make a referral to [facility] long covid clinic but she would like [...] declined. We can make a referral to [facility] long covid clinic but she would like to do a respiratory panel to r/o any infection before proceeding with referral. Next Appt Details Follow Up: via phone to repo rt test results, Reason: Progress Notes * BI YOUGNADOB:1955 (70 yo F)Acc No.[id number]:01/24/2025 Progress Notes Patient: AUGUSTIN GODOY Provider: PETER Jaramillo :1955 A ge:69 Y S ex:Female Date:01/24/2025 Address:[address] [place] [address] Subjective: * Chief Complaints: * 1 . [...] day , Taking Vitamin D3 1.25 MG (86648 UT) Capsule 1 capsule Orally Once weekly [...] G 2211 Complex e/[place], [address] CAPILLARY BLOOD DRAW, 85269 CBC WITH AUTO DIFF, 3074F SYST BP LT 130 MM HG, 3079F DIAST BP 80-89 MM HG * Follow Up: v ia phone to report test results * Images: Billing Information: * Visit Code: 92700 Office Visit, Est Pt., Level 4. * Procedure Codes: G2211 Complex e/[place]. [address] CAPILLARY BLOOD DRAW. 37678 CBC WITH AUTO DIFF. 3074F SYST BP LT 130 MM HG. 3079F DIAST BP 80-89 MM HG. * Electronic signature of PETER Brown on 06/14/2025 at 08:41 AM EDT Sign off status: Pending * Provider: PETER Jaramillo Date: 0 01/24/2025 Generated for Sterling iverson/Yeison/Yessicaitting on: 0 06/14/2025 08:41 AM EDT History [...]
--- OUTSIDE RECORDS SUMMARY | 2025-05-02 10:00 | XMS_ITS ---
[facility] Address [address] [facility] [address] [facility] [address] [place] [id number] Care Team Providers Care Social Service Liaison Name Role Phone Willam Hinkle Unavailable [phone] Magdalena Kim Unavailable [phone] Allergies Allergen (clinical drug ingredient) Drug/Non Drug Allergy documented on EMR Reaction Allergy Type Onset Date Status erythromycin Erythromycin Unknown Drug Allergy A ctive Bee Sting Unknown Allergy Active Penicillin Unknown Drug Allergy Active Reason For Referral Diagnosis 1 Chronic fatigue (R53 .82) Diagnosis 2 Myalgia (M79.10) Diagnosis 3 Polyarthritis (M13.0 ) Diagnosis 4 Joint stiffness (M25 .60) Diagnosis 5 Family history of rh eumatoid arthritis (Z82.61) [facility] Referring Provider First Name Magdalena Referring Provider Last Name Judy Referring Provider Speciality Physician Ux Developer Designer Referred Provider Specialty Rheumatology General Notes Magdalena Kim 12/2024 02:25:17 PM > Please make appt with Dr. Norwood. Please send all previous labs and notes.Marleny Brynn 05/02/2025 02:44:19 PM > sent all notes/referral Referral Priority Routine REASON FOR VISIT fibromyalgia Medications Medication SIG (Take, Route, Frequency, Duration) Notes Start Date End Date Status DULoxetine HCl 30 MG 1 capsule Orally On ce a day; Duration: 30 days 05/02/2025 Active Meloxicam 15 MG 1 tablet Orally Once a day; Duration: 30 day(s) 01/31/2025 Active cycloSPORINE 0.05 % 1 drop into affected eye Ophthalmic Twice a day Active Vitamin D3 1.25 MG (64741 UT) 1 capsule Orally Once weekly 12/08/2024 Active Problems Problem Type SNOMED Code ICD Code Onset Dates Problem Status W/U Status Risk Notes Problem Daytime hypersomnolence (G47.19) Active confirmed Vital Signs Blood pressure systolic 122 mm Hg 05/02/20 25 Blood pressure diastolic 60 mm Hg 025 Heart Rate 78 /min 05/02/2025 Height 62 in 05/02/2025 Weight 154.4 lbs 05/02/2025 BMI 28.24 kg/m2 05/02/2025 Encounters Encounter Location Date Provider Diagnosis [facility] [address] [facility] [address] [place], [place] [id number] 05/02/2025 Magdalena Kim Chronic fatigue R53. 82 ; Myalgia M79.10 ; Polyarthritis M13.0 ; Joint stiffness M25.60 ; Daytime hypersomnolence G47.19 ; Family history of rheumatoid arthritis Z82.61 and BMI 28.0-28.9,adult Z68.28 Assessments Encounter Date Diagnosis (ICD Code) Assessment Notes Treatment Notes Treatment Clinical Notes Section Notes 05/02/2025 Chronic fatigue (ICD-10 - R53.82) All lab results have been normal. She certainly could have fibromyalgia along with osteoarthritis causing the joint and muscle pain. The meloxicam initially helped but is helping less now. We also discussed the possibility of long covid as symptoms got much worse after she had covid in October. She is in agreement to get a sleep study and for a rheumatology referral 05/02/2025 Myalgia (ICD-10 - M79.10) Will start on duloextine to see if this helps. 05/02/2025 Polyarthritis (ICD-10 - M13.0) 05/02/2025 Joint stiffness (ICD-10 - M25.60) 05/02/2025 Daytime hypersomnolence (ICD-10 - G47.19) 05/02/2025 Family history of rheumatoid arthritis (ICD-10 - Z82.61) 05/02/2025 BMI 28.0-28.9,adult (ICD-10 - Z68.28) Plan Of Treatment Medication Medication Name Sig Start Date Stop Date Notes DULoxetine HCl 30 MG 1 capsule Orally On ce a day; Duration: 30 days 05/02/2025 Treatment Notes Assessment Notes Chronic fatigue All lab results have been normal. She certainly could have fibromyalgia along with osteoarthritis causing the joint and muscle pain. The meloxicam initially helped but is helping less now. We also discussed the possibility of long covid as symptoms got much worse after she had covid in October. She is in agreement to get a sleep study and for a rheumatology referral Myalgia Will start on duloex dave to see if this helps. Referrals Referral Date Details 05/02/2025 05/02/2025 Next Appt Details Follow Up: via phone to repo rt test results, Reason: Progress Notes * BI YOUNGADOB:1955 (70 yo F)Acc No.[id number]:05/02/2025 Progress Notes Patient: AUGUSTIN GODOY Provider: PETER Jaramillo :1955 A ge:70 Y S ex:Female Date:05/02/2025 Address:[address] [place] [address] Subjective: * Chief Complaints: * 1 . Fibromyalgia. * HPI: P ain: Pt here f/u on pain. Pt states the pain is all over her body. Pt states she is always tired. Pt states she is having brain fog and she thinks it's getting worse. Pt states she can not lose weight. * ROS: D ERMATOLOGY: no R ludivina. [...] day , Taking Vitamin D3 1.25 MG (75547 UT) Capsule 1 capsule Orally Once weekly , Taking Meloxicam 15 MG Tablet 1 tablet Orally Once a day , Discontinued Cefdinir 300 MG Capsule 1 cap(s) Orally Two times a day , Medication List reviewed and reconciled with the patient * Allergies: P enicillin, Erythromycin, Bee Sting. Objective: * Vitals: W t: 154.4, Temp: 97.9, BP: 122/60, HR: 78, Nurse: pe, Ht: 62, BMI:28.24. * Examination: G eneral Examination: General Appearance: N AD. H EENT: s clera and conjunctiva clear, PERRLA, TM's normal, translucent. O ral cavity: n o lesions, mucosa moist and [...] ?3. P olyarthritis - M13.0 4 . J oint stiffness - M25.60 5 . D aytime hypersomnolence - G47.19 6 . F amily history of rheumatoid arthritis - Z82.61 7 . B [place] 28.0-28.9,adult - Z68.28 Plan: * Treatment: 2. M yalgia Start DULoxetine HCl Capsule Delayed Release Particles, 30 MG, 1 capsule, Orally, Once a day, 30 days, 30, Refills 0. Notes: Will start on duloextine to see if this helps. ? Referral To:Rheumatology Reason: 3. P olyarthritis Referral To:Rheumatology Reason: 4. J oint stiffness Referral To:Rheumatology Reason: 5. F amily history of rheumatoid arthritis Referral To:Rheumatology Reason: * Procedure Codes: G 2211 Complex e/[place], [address]36F TOBACCO NON-USER, G8420 BMI<30 AND >=22 CALC & DOCU, G8783 BP SCR PRFRM RCMDD DEFIND SCR INTVL, G8752 MOST RECENT SYSTOLIC BP < 140MM HG, G8754 MOST RECENT DIASTOLIC BP < 90MM HG * Follow Up: v ia phone to report test results * Images: Billing Information: * Visit Code: 25948 Office Visit, Est Pt., Level 4. * Procedure Codes: G2211 Complex e/[place] on. 1036F TOBACCO NON-USER. G8420 BMI<30 AND >=22 CALC & DOCU. G8783 BP SCR PRFRM RCMDD DEFIND SCR INTVL. G8752 MOST RECENT SYSTOLIC BP < 140MM HG. G8754 MOST RECENT DIASTOLIC BP < 90MM HG. * Electronic signature of PETER Brown on 06/14/2025 at 08:41 AM EDT Sign off status: Pending * Provider: PETER Jaramillo Date: 0 05/02/2025 Generated for Sterling iverson/Yeison/Keshawn on: 06/14/2025 08:41 AM EDT History and Physical Notes * Examination Category Sub-Category Detail Notes Category Not es General Examination HEENT: sclera and c onjunctiva clear, PERRLA, TM's normal, translucent Heart: RSR Lungs: clear to auscultatio n [...] lly Chest: normal shape and exp ansion Consultation Request Notes Referral Date Referring Provider Referred Provider Not es 05/02/2025 Magdalena Kim ,
--- OUTSIDE RECORDS SUMMARY | 2025-06-14 08:42 | XMS_ITS | Patient Health Record ---
[facility] [address] [facility] [address] [facility] [address] [place] [id number] Care Team Providers Care Early Childhood Associate Teacher Name Role Phone Willam Hinkle Unavailable [phone] Magdalena iKm Unavailable [phone] Allergies Allergen (clinical drug ingredient) Drug/Non Drug Allergy documented on EMR Reaction Allergy Type Onset Date Status erythromycin Erythromycin Unknown Drug Allergy A ctive Bee Sting Unknown Allergy Active Penicillin Unknown Drug Allergy Active Results Component Value Reference Range Notes P-Lyme Disease (B. burgodorf dina), IgG/IgM, OVIDIO, Serum Reviewed date:01/22/2025 01:53:28 PM Interpretation: Normal Performing Lab: Notes/Report: Test performed by [facility] [employer] [address] [place] [address] [place] [address] Zoran Serrato MD, Casing In Line Setter CLIA: [id number] B burgdorferi (Lyme Disease) IgG Negative Negative B burgdorferi (Lyme Disease) IgM Negative Negative P-Cytomegalovirus (CMV) Anti bodies, IgG/IgM Reviewed date:01/22/2025 01:53:28 PM Interpretation: Normal Performing Lab: Notes/Report: Test performed by [facility] [address] [place] [address] , [place] [address] Zoran Serrato MD, Casing In Line Setter CLIA: [id number] Cytomegalovirus (CMV) Antibody, IgG Non-Reactive Non-Reactive This [...] >8.0 Performing Lab: Notes/Report: Test performed by [facility] [address] [place] [address] , [place] [address] Zoran Serrato MD, Casing In Line Setter CLIA: [id number] Candida Vance Virus (EBV) VCA Antibodies IgG >8.0 <0.9 AI Candida Vance Virus (EBV) VCA Antibodies IgM <0.2 <0.9 AI P-T4 Free (thyroxine) Reviewed date:01/22/2025 01:53:28 PM Interpretation: Normal Performing Lab: Notes/Report: Test performed by [facility] [address] , [place] [address] Zoran Serrato MD, Casing In Line Setter CLIA: [id number] Thyroxine Free (free T4) 1.14 0.86-1.76 ng/dL P-Lipid Panel Reviewed date:01/22/2025 01:53:28 PM Interpretation: Normal Performing Lab: Notes/Report: Test performed by [facility] [address] [place] [address] , [place] [address] Zoran Serrato MD, Casing In Line Setter CLIA: [id number] Cholesterol 148 <200 mg/dL Triglycerides 81 <150 [...] Normal Performing Lab: Notes/Report: Test performed by [facility] [address] [place], [place] [address] [place] [address] Zoran Serrato MD, Casing In Line Setter CLIA: [id number] T3 Uptake 1.01 0.80-1.30 TBI Free T4 (FT4), which more accurately reflects how the thyroid gland is functioning, especially in hypothyroidism, (https://www.thyroid.org/th moyvc-djlatsbh-aghdx/), is the preferred alternative, compared to T3 uptake and free thyroxine index tests. P-Thyroid Antibody Panel (TA BS) Reviewed date:01/22/2025 01:53:29 PM Interpretation:TA 15.5, TPA 10 Performing Lab: Notes/Report: Test performed by [facility] [employer] [address] [place], [place] [address] [place] [address] Zoran Serrato MD, Casing In Line Setter CLIA: [id number] Thyroid Peroxidase Antibody 10 <9-34 IU/mL An [...] Normal Performing Lab: Notes/Report: Test performed by [facility] [employer] [address] [place] [address] [place] [address] Zoran Serrato MD, Casing In Line Setter CLIA: [id number] Vitamin D 25-Hydroxy 76.5 30.0-100.0 ng/mL Interpretation of Vitamin D 25 OH: < 20 ng/mL - Deficiency 20 - 29 ng/mL - Insufficiency 30 - 100 ng/mL - Sufficiency > 100 ng/mL - Super-therapeutic- toxicity may occur above this level. Clinical correlation required. sleep study (Not yet reviewe d by provider) Interpretation:snoring, consider repeat Performing Lab: Notes/Report: snoring, consider repeat ELOISA Reviewed date:11/27/2024 02:00:07 PM Interpretation: Performing Lab: Notes/Report: TEN-Upper Respiratory PCR Reviewed date:01/26/2025 01:46:15 PM [...] Interpretation:19.4 Performing Lab: Notes/Report: Test performed by [facility] [address] [place] [address] [address] C, [place] [address] Zoran Serrato MD, Casing In Line Setter CLIA: [id number] Vitamin D 25-Hydroxy 19.4 30.0-100.0 ng/mL Interpretation of Vitamin D 25 OH: < 20 ng/mL - Deficiency 20 - 29 ng/mL - Insufficiency 30 - 100 ng/mL - Sufficiency > 100 ng/mL - Super-therapeutic- toxicity may occur above this level. Clinical correlation required. P-TSH reflex to FT4 Reviewed date:12/08/2024 04:38:45 PM Interpretation:Normal Performing Lab: Notes/Report: Test performed by [facility] [employer] [address] [place] [address] , [address], [place] [address] Zoran Serrato MD, Casing In Line Setter CLIA: [id number] TSH reflex to FT4 2.34 0.43-5.25 mU/L P-Phosphorus Reviewed date:12/08/2024 04:38:45 PM Interpretation:Normal Performing Lab: Notes/Report: Test performed by [facility] [address] [place] [address] , [address], [place] [address] Zoran Serrato MD, Casing In Line Setter CLIA: [id number] Phosphorus 3.2 2.5-4.5 mg/dL P-Magnesium Reviewed date:12/08/2024 04:38:45 PM Interpretation:Normal Performing Lab: Notes/Report: Test performed by [facility] [employer] [address] [place] [address] , [address], [place] [address] Zoran Serrato MD, Casing In Line Setter CLIA: [id number] Magnesium 2.1 1.6-2.4 mg/dL [facility] Reviewed date:12/08/2024 04:38:45 PM Interpretation:crp 0.53 Performing Lab: Notes/Report: Test performed by [facility] [address] [place] [address] , [address], [place] [address] Zoran Serrato MD, Casing In Line Setter CLIA: [id number] Erythrocyte Sedimentation Rate (ESR), Automated 22 <31 mm/hr Rheumatoid Factor <10 <14.1 IU/mL C-Reactive Protein (CRP) 0.53 <0.50 mg/dL Antinuclear Antibodies (VONDA) Screen, Reflex VONDA 9 Panel Negative Negative This test is perform ed by Multiplex Bead Immunoassay methodology. Antinuclear Antibodies (VONDA) Result Note SEE COMMENT For positive Autoantibodies, please refer to the interpretive chart here: http://www.[employer]/wp -content/uploads//AN R-Homuxyrbflcv-Exqka.pdf CCP Antibodies <0.5 <0.5-3.0 U/mL P-CPK Reviewed date:12/08/2024 04:38:45 PM Interpretation:Normal Performing Lab: Notes/Report: Test performed by [facility] [employer] [address] [place] [address] [address], [place] [address] Zoran Serrato MD, Casing In Line Setter CLIA: [id number] Creatine Kinase 45 20-180 U/L P-Comprehensive Metabolic Pa nelson (CMP) Reviewed date:12/08/2024 04:38:45 PM Interpretation:Normal Performing Lab: Notes/Report: Test performed by [facility] [address] [place] [address] [address], [place] [address] Zoran Serrato MD, Casing In Line Setter CLIA: [id number] Sodium 142 135-145 mmol/L Potassium 4.2 3.5-5.3 [...] 1.1-2.5 P-Vitamin B12 Reviewed date:12/08/2024 04:38:45 PM Interpretation:>2000 Performing Lab: Notes/Report: Test performed by [facility] [employer] [address] [place] [address] , [address], [place] [address] Zoran Serrato MD, Casing In Line Setter CLIA: [id number] Vitamin B12 >2000 232-1245 pg/mL CBC Venipuncture [...] - 38 platlet 309 100 - 400 Reason For Referral Diagnosis 1 Chronic fatigue (R53 .82) Diagnosis 2 Myalgia (M79.10) Diagnosis 3 Polyarthritis (M13.0 ) Diagnosis 4 Joint stiffness (M25 .60) Diagnosis 5 Family history of rh eumatoid arthritis (Z82.61) [facility] Referring Provider First Name Magdalena Referring Provider Last Name Judy Referring Provider Speciality Physician Adjuster Electrical Contacts Referred Provider Specialty Rheumatology General Notes Magdalena [...] a day Active Vitamin D3 1.25 MG (85763 UT) 1 capsule Orally Once weekly 12/08/2024 Active Problems Problem Type SNOMED Code ICD Code Onset Dates Problem Status W/U Status Risk Notes Problem Vitamin D deficiency (45955074) Vitamin D deficiency (E55.9) Active confirmed Problem Chronic fatigue syndrome (68052246) Chronic fatigue (R53.82) Active confirmed Problem Polyarthritis (790825720) Polyarthritis (M13.0) Active confirmed Problem Obstructive sleep apnea syndrome (02635227) JAI (obstructive sleep apnea) (G47.33) Active confirmed Problem Chronic maxillary sinusitis (55716678) Right maxillary sinusitis (J32.0) Active confirmed Problem Daytime sleep (635182677) Daytime hypersomnolence (G47.19) Active confirmed Vital Signs Heart Rate 78 /min 05/02/2025 Blood pressure diastolic 60 mm Hg 05/02/2025 Height 62 in 05/02/2025 Blood pressure systolic 122 mm Hg 05/02/2025 Weight 154.4 lbs 05/02/2025 BMI 28.24 kg/m2 05/02/2025 Encounters Encounter Location Date Provider Diagnosis [facility] [address] [facility] [address] [place], [place] [id number] 12/07/2024 Willam Kingston Weight gain R63.5 ; Fatigue, unspecified type R53.83 ; Hair loss L65.9 ; Myalgia M79.10 ; Polyarthralgia M25.50 and Memory loss R41.3 [facility] [address] [facility] [address] [place], [place] [id number] 01/18/2025 Magdalena Crowdy Chronic fatigue R53. 82 ; Myalgia M79.10 ; Polyarthritis M13.0 ; Hair loss L65.9 ; Screening, lipid Z13.220 and Vitamin D deficiency E55.9 [facility] [address] [facility] [address] [place], [place] [id number] 01/24/2025 Magdalena Crowdy Chronic fatigue R53. 82 ; Myalgia M79.10 ; Polyarthritis M13.0 ; Hair loss L65.9 ; Screening, lipid Z13.220 ; Vitamin D deficiency E55.9 and Right maxillary sinusitis J32.0 [facility] [address] [facility] [address] [place], [place] [id number] 05/02/2025 Magdalena Crowdy Chronic fatigue R53. 82 ; Myalgia M79.10 ; Polyarthritis M13.0 ; Joint stiffness M25.60 ; Daytime hypersomnolence G47.19 ; Family history of rheumatoid arthritis Z82.61 and BMI 28.0-28.9,adult Z68.28 [facility] [address] [place] [facility] [address] [place], [place] [id number] 05/14/2025 Willam [place] [facility] [address] [place] [facility] [address] [place], [place] [id number] 12/08/2024 Willam Kingston [facility] [address] [place], [place] [id number] 01/15/2025 Willam Hinkle [facility] [address] [place], [place] [id number] 01/22/2025 Magdalena Kim [facility] [address] [place], [place] [id number] 01/26/2025 Magdalena Crowdy [facility] [address] [place] [id number] 01/30/2025 Magdalena Crowdy Polyarthritis M13.0 and Right maxillary sinusitis J32.0 [facility] [address] [place], [place] [id number] 05/24/2025 Willam Hinkle Myalgia M79.10 Assessments Encounter [...] can make a referral to [facility] but she would like [...] Date [employer] (MEDICAR E) [address] [address] [place] [address] [phone] [id number] AUGUSTIN YOUNG Self - patient is the insured Medical (General) History Surgical History Surgery Date(Month/Year) Tubal Ligation 1993
[2025-06-14 10:28] LABS: Iron 151 ug/dL (37-170)
[2025-06-14 10:34] LABS: C-Reactive Protein 3.0 mg/L (0-4)
[2025-06-14 10:37] LABS: Total Iron Binding Capacity 217 ug/dL (265-497)
[2025-06-14 11:05] LABS: Ferritin 48.6 ng/ml (11.1-264)
[2025-06-14 12:51] LABS: Vitamin B12 780 pg/mL (239-931)
[2025-06-15 14:18] LABS: Immunoglobulin A, Qn 248 mg/dL (87-352); Immunoglobulin G, Qn 1165 mg/dL (586-1602)
== END 2025-06-14 23:59 | disposition home or self-care (01) ==
LOC: LAB 08:35
PROVIDERS: PCP Physician Assistant; Visit Provider Internal Medicine Rheumatology
DX: M15.0 Primary generalized (osteo)arthritis (principal); M25.60 Stiffness of unspecified joint, not elsewhere classified; M79.10 Myalgia, unspecified site; R53.83 Other fatigue
CPT/HCPCS: 36415; 82607; 82728; 82784; 83540; 83550; 85651; 86140